=== PATIENT | female | born 1965 | race Caucasian/White ===

== ENCOUNTER 2020-03-10 10:36 | Observation (INO) ==
[2020-03-10] MEDS ORDERED: Aspirin 81 MG TAB.CHEW PO ONE (11:03)
[2020-03-10 11:31] LABS: Bilirubin,Urine Negative (Negative); Blood,Urine Negative (Negative); Clarity,Urine Clear (Clear); Color,Urine Yellow (Yellow); Glucose,Urine (UA) >=1000 mg/dL (Normal); Ketones,Urine Negative (Negative); Leukocyte Esterase,Urine Negative (Negative); Nitrite,Urine Negative (Negative); Protein,Urine Negative (Neg-Trace); Specific Gravity,Urine 1.015 (1.010-1.025); Urobilinogen,Urine Normal (Normal)
[2020-03-10 11:49] LABS: Basophils # 0.1 K/mcL (0.0-0.2); Basophils % 0.8 %; Eosinophils # 0.2 K/mcL (0.0-0.6); Eosinophils % 3.2 %; Hematocrit 43.9 % (35.3-44.9); Hemoglobin 14.2 g/dL (11.5-15.4); Immature Granulocytes % 0.5 % (0-4); Lymphocytes # 1.8 K/mcL (0.6-4.6); Lymphocytes % 24.7 %; Mean Corpuscular HGB Conc 32.3 g/dL (31.6-35.5); Mean Corpuscular Hemoglobin 28.2 pg (28.0-33.3); Mean Corpuscular Volume 87.1 fL (83.0-100.0); Mean Platelet Volume 10.4 fL (9.4-12.4); Monocytes # 0.3 K/mcL (0.0-1.3); Monocytes % 4.2 %; Platelet Count 261 K/mcL (140-400); Red Blood Count 5.04 M/mcL (3.82-4.97); Red Cell Distribution Width 12.9 % (11.5-14.5); Segmented Neutrophils % 66.6 %; White Blood Count 7.5 K/mcL (4.3-11.1)
[2020-03-10 11:55] LABS: INR 0.9; Prothrombin Time 10.1 Seconds (9.4-12.1)
[2020-03-10 11:57] LABS: Activated Partial Thrombo Time 32.7 Seconds (26.0-36.0)
[2020-03-10 12:12] LABS: Alanine Aminotransferase 13 Units/L (7-52); Albumin 4.6 g/dL (3.5-5.7); Albumin/Globulin Ratio 1.9 (1.1-2.2); Alkaline Phosphatase 99 Units/L (34-104); Aspartate Amino Transferase 11 Units/L (13-39); BUN/Creatinine Ratio 20 (6-26); Bilirubin,Direct 0.1 mg/dL (0.0-0.2); Bilirubin,Indirect 0.3 mg/dL (0.0-1.0); Bilirubin,Total 0.4 mg/dL (0.3-1.0); Blood Urea Nitrogen 12 mg/dL (6-20); Calcium 9.9 mg/dL (8.6-10.3); Carbon Dioxide 24 mEq/L (23-29); Chloride 104 mEq/L (98-107); Globulin 2.4 g/dL (2.4-3.5); Glucose 97 mg/dL (70-105); Lipase 18 Units/L (11-82); Osmolality,Calculated 290 (280-300); Potassium 3.9 mEq/L (3.5-5.1); Sodium 140 mEq/L (136-145); Troponin I < 0.03 ng/mL (< 0.04); eGFR For African Americans > 60 (> 60); eGFR For Non-African Americans > 60 (> 60)
[2020-03-10] MEDS ORDERED: Naloxone 0.4 MG/ML INJ IVP PRN (13:20)
[2020-03-10] MEDS ORDERED: D5% in Water 1,000 ML IVC PRN (13:28)
[2020-03-10] MEDS ORDERED: Dextrose Gel 15 GM/37.5 ML TUBE PO PRN ×2 (13:28)
[2020-03-10] MEDS ORDERED: *HR* Dextrose 50 % in Water (Syg) 50 ML SYRINGE IVP PRN (13:28)
[2020-03-10 14:02] LABS: Chol/HDL Ratio 4.1 (0-4.9); Cholesterol 207 mg/dL (< 200); HDL Cholesterol 50 mg/dL (40-59); LDL Cholesterol,Calculated 111 mg/dL (0-99); Triglycerides 230 mg/dL (< 150)
[2020-03-10] MEDS: Insulin LISPRO 300 UNITS/3 ML VIAL SQ SCH (15:16)
[2020-03-10] MEDS: lisinopriL 10 MG TABLET PO SCH (15:17)
[2020-03-10] MEDS ORDERED: Isovue-370 500 ML BOTTLE IVP ONE (15:20)
[2020-03-10] MEDS ORDERED: Nicotine 21 MG PATCH.TD24 TD PRN (15:22)
[2020-03-10] MEDS ORDERED: Nitroglycerin 0.4 MG TAB.SUBL SL PRN (15:22)
[2020-03-10] MEDS ORDERED: 0.9 % Sodium Chloride 1,000 ML IVC SCH (15:30)
[2020-03-10] MEDS: *HR* Heparin 5,000 UNIT/ML VIAL SQ SCH (17:10)
[2020-03-10] MEDS ORDERED: Acetaminophen 325 MG TABLET PO PRN (17:17)
[2020-03-10 18:44] LABS: Estimated Average Glucose 194 mg/dl
[2020-03-10] MEDS ORDERED: Insulin LISPRO 300 UNITS/3 ML VIAL SQ SCH (21:00)
[2020-03-10] MEDS ORDERED: *HR* Promethazine 25 MG/ML VIAL IV PRN (22:39)
[2020-03-11 02:19] LABS: BUN/Creatinine Ratio 22 (6-26); Blood Urea Nitrogen 16 mg/dL (6-20); Calcium 8.9 mg/dL (8.6-10.3); Carbon Dioxide 24 mEq/L (23-29); Chloride 108 mEq/L (98-107); Glucose 155 mg/dL (70-105); Magnesium 2.2 mg/dL (1.6-2.6); Osmolality,Calculated 296 (280-300); Phosphorous 5.1 mg/dL (2.7-4.5); Potassium 3.6 mEq/L (3.5-5.1); Sodium 141 mEq/L (136-145); eGFR For African Americans > 60 (> 60); eGFR For Non-African Americans > 60 (> 60)
[2020-03-11] MEDS: *HR* Heparin 5,000 UNIT/ML VIAL SQ SCH (05:36)
[2020-03-11] MEDS: Insulin LISPRO 300 UNITS/3 ML VIAL SQ SCH ×2 (08:00→13:41)
[2020-03-11] MEDS ORDERED: Regadenoson 0.4 MG/5 ML SYRINGE IVP ONE (08:49)
[2020-03-11] MEDS ORDERED: Aspirin 81 MG TAB.CHEW PO SCH (09:00)
[2020-03-11] MEDS ORDERED: BuPROPion XL (24 HR) 150 MG TABLET PO SCH (09:00)
[2020-03-11 11:14] VITALS: BP 117/69
[2020-03-11] MEDS: lisinopriL 10 MG TABLET PO SCH (14:30)
== END 2020-03-11 15:15 | disposition home or self-care (01) ==
LOC: EMEROOARM 10:36 → 3BNU 10:36 → SUATTDRO 13:20 → 3BNU 13:24
PROVIDERS: ADMIT Internal Medicine; ATTEND Internal Medicine

== ENCOUNTER 2020-08-10 13:23 | Inpatient (IN) ==
[~2020-08-10 13:23] MED LIST: Acetaminophen IV 1,000 MG/100 ML INFUS..BTL IVPB SCH; Famotidine 20 MG/2 ML VIAL IVP SCH; Pregabalin 75 MG CAPSULE PO ONE; Ringers Solution, Lactated 1,000 ML IVC SCH; ceFAZolin 1,000 MG, Sodium Chloride IRRigation 1,000 ML IR ONE
[2020-08-10] MEDS ORDERED: CeFAZolin Syr 2,000MG/20 ML 2,000 MG/20 ML SYRINGE IVPB ONE (13:43)
[2020-08-10] MEDS ORDERED: *HR* Metoprolol 5 MG/5 ML VIAL IVP PRN (14:56)
[2020-08-10] MEDS ORDERED: Albuterol 2.5 MG/3 ML NEBULIZER IH PRN (14:56)
[2020-08-10] MEDS ORDERED: Dexamethasone 4 MG/ML VIAL IVP PRN (14:56)
[2020-08-10] MEDS ORDERED: Naloxone 0.4 MG/ML INJ IVP PRN ×2 (14:56→21:55)
[2020-08-10] MEDS ORDERED: *HR* FentaNYL (PF) 100 MCG/2 ML VIAL IVP PRN (14:56)
[2020-08-10] MEDS ORDERED: diazePAM 5 MG TABLET PO SCH (15:00)
[2020-08-10] MEDS ORDERED: Lidocaine HCL 4 ML Topical Solution (Laryng-O-Jet Kit Sterile Pak) TP ONE ×2 (15:57→17:23)
[2020-08-10] MEDS ORDERED: Lidocaine -MPF 2% 2 ML VIAL ONE ×3 (15:57→17:46)
[2020-08-10] MEDS ORDERED: Dexamethasone 4 MG/ML VIAL ONE (15:57)
[2020-08-10] MEDS ORDERED: Ondansetron 4 MG/2 ML VIAL ONE (15:57)
[2020-08-10] MEDS ORDERED: *HR* Propofol 200 MG/20 ML VIAL IVP ONE ×2 (15:58→17:22)
[2020-08-10] MEDS ORDERED: Protamine Sulfate 50 MG/5 ML VIAL IVP ONE (17:11)
[2020-08-10] MEDS ORDERED: Heparin 1,000 UNITS/500 mL 1,000 ML ONE (17:11)
[2020-08-10] MEDS ORDERED: Heparin 1,000 UNITS/500 mL 500 ML ONE ×2 (17:19→19:51)
[2020-08-10] MEDS ORDERED: *HR* Midazolam HCl 2 MG/2 ML VIAL ONE (17:22)
[2020-08-10] MEDS ORDERED: *HR* FentaNYL (PF) 100 MCG/2 ML VIAL ONE (17:22)
[2020-08-10] MEDS ORDERED: *HR* Succinylcholine 200 MG/10 ML VIAL IVP ONE (17:23)
[2020-08-10] MEDS ORDERED: *HR* Remifentanil 2 MG VIAL IVP ONE (17:41)
[2020-08-10] MEDS ORDERED: *HR* Phenylephrine 10 MG/ML VIAL ONE (18:18)
[2020-08-10] MEDS ORDERED: EPHEDrine 50 MG/ML VIAL ONE (18:39)
[2020-08-10] MEDS ORDERED: *HR* Heparin 5,000 UNIT/ML VIAL ONE (19:16)
[2020-08-10] MEDS: *HR* HYDROmorphone PF 0.5 MG/0.5 ML SYRINGE IVP PRN ×3 (20:56→21:11)
[2020-08-10] MEDS ORDERED: Ondansetron 4 MG/2 ML VIAL IVP PRN (21:55)
[2020-08-10] MEDS ORDERED: Acetaminophen 325 MG TABLET PO PRN (21:55)
[2020-08-10] MEDS ORDERED: *HR* HYDROcodone/Acet 5/325 mg TABLET PO PRN (21:55)
[2020-08-10] MEDS ORDERED: *HR* Labetalol 20 MG/4 ML SYRINGE IVP PRN (21:55)
[2020-08-10] MEDS: *HR* Metformin 500 MG TABLET PO SCH (22:30)
[2020-08-10] MEDS: CeFAZolin 2 GM/120 ML BAG IVPB SCH (22:31)
[2020-08-10 22:33] LABS: Basophils % 0.2 %; Eosinophils % 0.4 %; Hematocrit 37.4 % (35.3-44.9); Hemoglobin 12.1 g/dL (11.5-15.4); Immature Granulocytes % 0.7 % (0-4); Lymphocytes # 0.9 K/mcL (0.6-4.6); Lymphocytes % 9.4 %; Mean Corpuscular HGB Conc 32.4 g/dL (31.6-35.5); Mean Corpuscular Hemoglobin 29.4 pg (28.0-33.3); Mean Platelet Volume 10.2 fL (9.4-12.4); Monocytes # 0.1 K/mcL (0.0-1.3); Monocytes % 1.1 %; Neutrophils # 8.1 K/mcL (1.6-8.9); Platelet Count 210 K/mcL (140-400); Red Blood Count 4.11 M/mcL (3.82-4.97); Red Cell Distribution Width 12.9 % (11.5-14.5); Segmented Neutrophils % 88.2 %
[2020-08-10 22:34] LABS: White Blood Count 9.2 K/mcL (4.3-11.1)
[2020-08-11 06:34] LABS: BUN/Creatinine Ratio 33 (6-26); Blood Urea Nitrogen 21 mg/dL (6-20); Calcium 9.1 mg/dL (8.6-10.3); Carbon Dioxide 20 mEq/L (23-29); Chloride 108 mEq/L (98-107); Glucose 175 mg/dL (70-105); Osmolality,Calculated 293 (280-300); Potassium 4.2 mEq/L (3.5-5.1); Sodium 138 mEq/L (136-145); eGFR For African Americans > 60 (> 60); eGFR For Non-African Americans > 60 (> 60)
[2020-08-11] MEDS: CeFAZolin 2 GM/120 ML BAG IVPB SCH ×2 (07:46→15:26)
[2020-08-11] MEDS: *HR* Metformin 500 MG TABLET PO SCH (07:47)
[2020-08-11] MEDS ORDERED: BuPROPion XL (24 HR) 150 MG TABLET PO SCH (09:00)
[2020-08-11] MEDS ORDERED: (Empagliflozin [Jardiance] 25 MG) PO SCH (09:00)
[2020-08-11] MEDS ORDERED: lisinopriL 10 MG TABLET PO SCH (09:00)
[2020-08-11] MEDS ORDERED: Aspirin 81 MG TAB.CHEW PO SCH (09:00)
[2020-08-11 15:36] VITALS: BP 115/48
== END 2020-08-11 18:09 | disposition home or self-care (01) | DRG 39 ==
LOC: SAMDAY 13:23 → 2NNU 21:55
PROVIDERS: ADMIT Surgery Vascular Surgery; ATTEND Surgery Vascular Surgery